=== PATIENT | female | born 1980 | race Caucasian/White ===

== ENCOUNTER 2016-12-26 10:16 | Emergency (ER) | payer OTHER ==
[~2016-12-26 10:16] MED LIST: IBUP80TA PO; PERCOCET PO; VITAPRTA PO
[2016-12-26] MEDS ORDERED: ASPIRIN 81 MG CHEW TABLET As Ordered ONE (11:02)
--- NOTE | 2016-12-26 11:09 | REP ---
Chest x-ray: Two views. History: Chest pain. . Comparison study: No comparison studies. . Findings: The lungs are well inflated and free of infiltrate. The pleural angles are sharp. The heart size is normal. Pulmonary vasculature is not increased. No significant bony abnormality is seen. Impression: Negative chest x-ray. Signed by Scott Sharif MD 12/26/2016 11:00 A
[2016-12-26 12:54] LABS: BASO % 0.6 % (0.0-1.0); EOS # 0.2 K/mm3 (0.0-0.50); EOS % 3.3 % (0.0-3.0); LARGE UNSTAINED CELL # 0.1 K/mm3 (0.0-0.4); LARGE UNSTAINED CELL % 2.2 % (0.0-4.0); LYMPH # 1.9 K/mm3 (1.5-4.5); LYMPH % 40.9 % (24.0-44.0); MEAN CORPUSCULAR HEMOGLOBIN 30.6 pg (27.0-33.0); MEAN CORPUSCULAR HGB CONC 33.1 g/dl (32.0-36.5); MEAN CORPUSCULAR VOLUME 92.3 fl (80.0-96.0); MONO # 0.3 K/mm3 (0.0-0.8); MONO % 6.9 % (0.0-5.0); NEUTROPHILS # 2.2 K/mm3 (1.8-7.7); PLATELET COUNT, AUTOMATED 254 k/mm3 (150-450); RED CELL DISTRIBUTION WIDTH 13.2 % (11.5-14.5); WHITE BLOOD COUNT 4.7 K/mm3 (4.0-10.0)
[2016-12-26 13:17] LABS: BLOOD UREA NITROGEN 7 MG/DL (7-18); CALCIUM LEVEL 8.5 MG/DL (8.5-10.1); CARBON DIOXIDE LEVEL 28 MEQ/L (21-32); CHLORIDE LEVEL 107 MEQ/L (98-107); CREATININE FOR GFR 0.68 MG/DL (0.55-1.02); GLUCOSE, FASTING 93 MG/DL (70-105); POTASSIUM SERUM 4.1 MEQ/L (3.5-5.1)
[2016-12-26] MEDS ORDERED: KETOROLAC 30 MG/ML VIAL (J1885) As Ordered ONE (13:38)
[2016-12-26 13:41] LABS: ANION GAP 7 MEQ/L (8-16); SODIUM LEVEL 142 MEQ/L (136-145)
--- NOTE | 2016-12-26 14:04 | EDDOCDS ---
Physician Documentation [facility] Name: Catalina Kwong Age: 36 yrs Sex: Female : 1980 Arrival Date: 12/26/2016 Time: 10:16 Bed PR Private MD: Disposition: 12/26/16 13:33 Discharged to Home/Self Care. Impression: Muscle spasm, Bradycardia, unspecified. - Condition is Stable. - Prescriptions for naproxen 500 mg Oral tablet - take 1 tablet by ORAL route every 12 hours; 28 tablet. Tylenol 325 mg Oral Tablet - take 2 tablet by ORAL route every 6 hours as needed; 1 bottle. - Medication Reconciliation, Local Pharmacy Hours form. - Follow up: Emergency Department; When: As soon as possible; Reason: Worsening of conditions. Follow up: Private Physician; When: 2 - 3 days; Reason: Recheck today's complaints. - Problem is new. - Symptoms are unchanged. Historical: - Allergies: no known allergies; - Home Meds: 1. Zoloft 100 mg oral tab once daily 2. clonidine HCl 0.2 mg Oral tab 2 times per day - PMHx: Depression; Borderline Personality Disorder; - PSHx: left arm; ; - Social history: Smoking status: Patient uses tobacco products, current every day smoker. No barriers to communication noted, The patient speaks fluent Yakut, Speaks appropriately for age. - Family history: Not pertinent. - : The pt / caregiver states he / she is not on anticoagulants. Home medication list is obtained from the patient. - Exposure Risk Screening:: None identified. 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 6 in. (167.64 cm); 10:24 Temp 97.1(T); srm 13:30 BP 149 / 81; Pulse 46; Resp 16; Temp 98(O); Pulse Ox 100% on R/A; kr3 14:03 Pain 2/10; kr3 10:24 Body Mass Index 34.38 (96.62 kg, 167.64 cm) srm MDM: 10:22 ECG WITH READING ER PHYS+CARDIAG ordered. EDMS 10:48 Aspirin Chewable Tablet 324 mg PO once ordered. jk8 10:48 Chest, 2 View (pa\E\lat) Ordered. EDMS 10:50 Financial registration complete. lg 10:54 REPLACED BY [facility] Payment Agreement was scanned into [employer] and attached to record. lg 11:45 Chest, 2 View (pa\E\lat) Reviewed. jk8 12:36 CBC WITH DIFFERENTIAL Ordered. EDMS 12:36 BASIC METABOLIC PROFILE Ordered. EDMS 12:36 CK-MB VALUE MASS Ordered. EDMS 12:36 TROPONIN Ordered. EDMS 13:13 CBC WITH DIFFERENTIAL Reviewed. jk8 13:24 CK-MB VALUE MASS Reviewed. jk8 13:24 TROPONIN Reviewed. jk8 13:27 BASIC METABOLIC PROFILE Reviewed. jk8 13:28 Vital Signs ordered. jk8 13:35 ketorolac 30 mg IM once ordered. jk8 13:35 Acetaminophen Tablet 650 mg PO once ordered. jk8 Administered Medications: 11:04 Drug: Aspirin 324 mg [aspirin 81 mg chewable tablet (4 tabs)] Route: PO; kr3 13:40 Drug: Acetaminophen 650 mg [acetaminophen 325 mg tablet (2 tabs)] Route: PO; kr3 14:03 Follow up: Response: Pain is decreased kr3 13:45 Drug: ketorolac 30 mg [ketorolac 30 mg/mL (1 mL) injection solution (1 mL)] Route: IM; kr3 Site: left gluteus; 14:03 Follow up: Pain 2/10 Adult; Response: Pain is decreased kr3 Signatures: Dispatcher [employer] EDMS Marcelle Negro RN LUIS FELIPE [facility] Power Manzo, [facility] Sunshine Nunez RN RN kr3 Chava Carlisle PA-C PA-C jk8 The chart was reviewed and I authenticate all verbal orders and agree with the evaluation and treatment provided.Corrections: (The following items were deleted from the chart) 12:13 12:03 Within normal limits: NSR 66 BPM, no STEMI. [email or web address] jk8 13:27 12:13 OrderId: [id number] PrecursorText: InterpretationText: diana jk8 13:27 13:27 Sinus katy 46 bpm, low qrs precordial leads, possible old infarct. diana jk8 Attachments: 10:54 [facility] Payment Agreement lg MTDD
--- NOTE | 2016-12-26 14:04 | EDDOCDS ---
Nurse's Notes [facility] Name: Catalina Kwong Age: 36 yrs Sex: Female : 1980 Arrival Date: 12/26/2016 Time: 10:16 Bed PR Private MD: Diagnosis: Muscle spasm;Bradycardia, unspecified Presentation: 12/26 10:18 Presenting complaint: Patient states: back pain/ left shoulder pain for a week. srm yesterday started with left sided chest pain and down left arm. occasional SOB. Presenting complaint: Patient states: has twins that weigh 25lbs each so she doesn't know if its from carrying them. Aspirin was not taken prior to arrival. Adult Sepsis Screening: The patient does not have new or worsening altered mentation. Patient's respiratory rate is less than 22. Systolic blood pressure is greater than 100. Patient has a qSOFA score of 0- Negative Sepsis Screen. Suicide/Homicide risk assessment- the patient denies having any suicidal and/or homicidal ideations and does not present with any other emotional, behavioral or mental health complaints. 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 Transition of care: patient was not received from another setting of care. 10:18 Acuity: TRAVIS Level 3 srm 10:18 Method Of Arrival: Walkin/Carried/Asstd srm Triage Assessment: 10:20 General: Appears in no apparent distress, Behavior is appropriate for age, cooperative. srm Pain: Pain currently is 6 out of 10 on a pain scale. HIV screening NA for this visit Offered previously. Cardiovascular: Chest pain is described as Pain is 8 out of 10 on a pain scale. radiates to left arm(s) episodes are continuous began shoulders a week ago and left chest yesterday. 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 Zoloft 100 mg oral tab once daily 2. clonidine HCl 0.2 mg Oral tab 2 times per day - PMHx: Depression; Borderline Personality Disorder; - PSHx: left arm; ; - Social history: Smoking status: Patient uses tobacco products, current every day smoker. No barriers to communication noted, The patient speaks fluent Mexican, Speaks appropriately for age. - Family history: Not pertinent. - : The pt / caregiver states he / she is not on anticoagulants. Home medication list is obtained from the patient. - Exposure Risk Screening:: None identified. Screenin:28 Screening information is obtained from the patient. Fall risk: No risks identified. kr3 Assistance ADL's: requires no assistance with activities of daily living. Abuse/DV Screen: The patient / caregiver reports he/she is: not in a situation that causes fear, pain or injury. Nutritional screening: No deficits noted. Advance Directives: Currently, there is no health care proxy. home support is adequate. Assessment: 10:29 General: ELG AND PT'S C/O DISCUSSED WITH DR MAVERICK CORNEJO THRU RCE PROCESS. srm 12:42 Reassessment: Patient appears in no apparent distress at this time. Neurological: No kr3 deficits noted. Respiratory: Reports pain with respiration. 13:27 Reassessment: Patient appears in no apparent distress at this time. continues to kr3 complain of chest pain with breathing difficulty. Pain 5/10. Respiratory: Respiratory effort is even, unlabored. Derm: Skin is normal. Vital Signs: 10:24 BP 139 / 80; Pulse 86; Resp 18; Pulse Ox 99% ; Weight 96.62 kg; Height 5 ft. 6 in. srm (167.64 cm); 10:24 Temp 97.1(T); srm 13:30 BP 149 / 81; Pulse 46; Resp 16; Temp 98(O); Pulse Ox 100% on R/A; kr3 14:03 Pain 2/10; kr3 10:24 Body Mass Index 34.38 (96.62 kg, 167.64 cm) [facility] Vitals: 10:17 Log In Time: December 26, 2016 at 10:16. RN notified that patient meets Red Flag jlf criteria. ED Course: 10:17 Patient visited by Jared Cardenas PCA. jlf 10:17 Patient visited by Jared Cardenas PCA. jlf 10:17 Patient moved to Waiting jlf 10:19 Triage Initiated srm 10:21 Patient moved to PD2 / srm 10:26 Patient visited by Marcelle Negro RN. srm 10:27 EKG done. (by ED staff). Reviewed by Krystal Cesar MD. srm 10:37 Patient moved to Triage 2 srm 10:41 Chava Carlisle PA-C is PHCP. jk8 10:41 Krystal Cesar MD is Attending Physician. jk8 10:41 Patient visited by Chava Carlisle PA-C. jk8 10:54 [facility] Payment Agreement was scanned into [employer] and attached to record. lg 11:38 Chest, 2 View (pa\E\lat) Returned. EDMS 12:36 Chava Carlisle PA-C is PHCP. jk8 12:36 Patient visited by Chava Carlisle PA-C. jk8 12:41 Patient moved to TR2 sew 12:41 TROPONIN Sent. sew 12:41 CK-MB VALUE MASS Sent. sew 12:41 BASIC METABOLIC PROFILE Sent. sew 12:41 CBC WITH DIFFERENTIAL Sent. sew 13:26 Patient moved to PR1 / 25 kr3 13:30 Patient visited by Sunshine Nunez RN. kr3 13:31 The patient / caregiver is instructed regarding the plan of care and ED course. Patient kr3 has correct armband on for positive identification. Cardiac monitoring not applicable on this patient. 13:31 No IV's were initiated during this patient's visit. No procedures done that require kr3 assistance. Administered Medications: 11:04 Drug: Aspirin 324 mg [aspirin 81 mg chewable tablet (4 tabs)] Route: PO; kr3 13:40 Drug: Acetaminophen 650 mg [acetaminophen 325 mg tablet (2 tabs)] Route: PO; kr3 14:03 Follow up: Response: Pain is decreased kr3 13:45 Drug: ketorolac 30 mg [ketorolac 30 mg/mL (1 mL) injection solution (1 mL)] Route: IM; kr3 Site: left gluteus; 14:03 Follow up: Pain 2/10 Adult; Response: Pain is decreased kr3 Order Results: Lab Order: CBC WITH DIFFERENTIAL; SPEC'M 12/26/16 12:39 Test: WHITE BLOOD COUNT; Value: 4.7; Range: 4.0-10.0; Units: K/mm3; Status: F Test: RED BLOOD COUNT; Value: 4.39; Range: 4.00-5.40; Units: M/mm3; Status: F Test: HEMOGLOBIN; Value: 13.4; Range: 12.0-16.0; Units: g/dl; Status: F Test: HEMATOCRIT; Value: 40.5; Range: 36.0-47.0; Units: %; Status: F Test: MEAN CORPUSCULAR VOLUME; Value: 92.3; Range: 80.0-96.0; Units: fl; Status: F Test: MEAN CORPUSCULAR HEMOGLOBIN; Value: 30.6; Range: 27.0-33.0; Units: pg; Status: F Test: MEAN CORPUSCULAR HGB CONC; Value: 33.1; Range: 32.0-36.5; Units: g/dl; Status: F Test: RED CELL DISTRIBUTION WIDTH; Value: 13.2; Range: 11.5-14.5; Units: %; Status: F Test: PLATELET COUNT, AUTOMATED; Value: 254; Range: 150-450; Units: k/mm3; Status: F Test: NEUTROPHILS %; Value: 46.0; Range: 36.0-66.0; Units: %; Status: F Test: LYMPH %; Value: 40.9; Range: 24.0-44.0; Units: %; Status: F Test: MONO %; Value: 6.9; Range: 0.0-5.0; Abnormal: Above high normal; Units: %; Status: F Test: EOS %; Value: 3.3; Range: 0.0-3.0; Abnormal: Above high normal; Units: %; Status: F Test: BASO %; Value: 0.6; Range: 0.0-1.0; Units: %; Status: F Test: LARGE UNSTAINED CELL %; Value: 2.2; Range: 0.0-4.0; Units: %; Status: F Test: NEUTROPHILS #; Value: 2.2; Range: 1.8-7.7; Units: K/mm3; Status: F Test: LYMPH #; Value: 1.9; Range: 1.5-4.5; Units: K/mm3; Status: F Test: MONO #; Value: 0.3; Range: 0.0-0.8; Units: K/mm3; Status: F Test: EOS #; Value: 0.2; Range: 0.0-0.50; Units: K/mm3; Status: F Test: BASO #; Value: 0.0; Range: 0.0-0.2; Units: K/mm3; Status: F Test: LARGE UNSTAINED CELL #; Value: 0.1; Range: 0.0-0.4; Units: K/mm3; Status: F Lab Order: BASIC METABOLIC PROFILE; [facility] 12/26/16 12:39 Test: GLUCOSE, FASTING; Value: 93; Range: 70-105; Units: MG/DL; Status: F Test: BLOOD UREA NITROGEN; Value: 7; Range: 7-18; Units: MG/DL; Status: F Test: CREATININE FOR GFR; Value: 0.68; Range: 0.55-1.02; Units: MG/DL; Status: F Test: SODIUM LEVEL; Value: 142; Range: 136-145; Units: MEQ/L; Status: F Test: POTASSIUM SERUM; Value: 4.1; Range: 3.5-5.1; Units: MEQ/L; Status: F Test: CHLORIDE LEVEL; Value: 107; Range: 98-107; Units: MEQ/L; Status: F Test: CARBON DIOXIDE LEVEL; Value: 28; Range: 21-32; Units: MEQ/L; Status: F Test: ANION GAP; Value: 7; Range: 8-16; Abnormal: Below low normal; Units: MEQ/L; Status: F Test: CALCIUM LEVEL; Value: 8.5; Range: 8.5-10.1; Units: MG/DL; Status: F Test Note: ; --- 12/26/16 1341 --- NA previously reported as: 142 MEQ/L Lab Order: CK-MB VALUE MASS; [facility] 12/26/16 12:39 Test: CK-MB VALUE MASS; Value: 1.0; Range: 0.0-3.6; Units: NG/ML; Status: F Lab Order: TROPONIN; [facility] 12/26/16 12:39 Test: TROPONIN I; Value: < 0.02; Range: < 0.10; Units: NG/ML; Status: F Test Note: ; Troponin I Reference Interval for [employer] LOCI: 99th Percentile= 0.00-0.045 ng/ml Risk Stratification: <= 0.10 ng/ml Decreased Risk for Adverse Clinical Events. 0.10-1.50 ng/ml Increased Risk for Adverse Clinical Events. Evaluation of additional criterion and/or repeat testing in 2-6 hours is suggested to rule out myocardial damage. >= 1.50 ng/ml Indicative of Myocardial Injury. Radiology Order: Chest, 2 View (pa\E\lat) Test: Chest, 2 View (pa\E\lat) REASON FOR EXAMINATION: Chest Pain; Chest x-ray: Two views.; ; History: Chest pain. .; ; Comparison study: No comparison studies. .; ; Findings: The lungs are well inflated and free of infiltrate. The pleural; angles are sharp. The heart size is normal. Pulmonary vasculature is not; increased. No significant bony abnormality is seen.; ; Impression:; ; Negative chest x-ray.; ; ; Signed by; Scott Sharif MD 12/26/2016 11:00 A; Outcome: 13:31 No special radiology studies were completed. kr3 13:33 Discharge ordered by Provider. jk8 14:02 Discharge Assessment: patient administered narcotics - no. The following High Risk kr3 Discharge criteria are identified: None. Discharged to home ambulatory. Condition: stable. Discharge instructions given to patient, Instructed on discharge instructions, follow up and referral plans. medication usage, Demonstrated understanding of instructions, medications, Pt was receptive of discharge instructions/ teaching. Prescriptions given X 2. Property sent home with patient. 14:03 Patient left the ED. kr3 Signatures: Dispatcher [employer] EDMS Marcelle Negro, RN RN Power Mcgowan, Sunshine Lopes lg, RN RN kr3 Krystal Benjamin Jordain, PCA PCA jlf Kenniff, Joseph, PA-C PA-C jk8 MTDD
--- NOTE | 2016-12-26 14:33 | ECGEPIP ---
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
--- NOTE | 2016-12-28 15:04 | EDDOCDS ---
Physician Documentation [facility] Name: Catalina Kwong Age: 36 yrs Sex: Female : 1980 Arrival Date: 12/26/2016 Time: 10:16 Bed PR Private MD: Disposition: 12/26/16 13:33 Discharged to Home/Self Care. Impression: Muscle spasm, Bradycardia, unspecified. - Condition is Stable. - Prescriptions for naproxen 500 mg Oral tablet - take 1 tablet by ORAL route every 12 hours; 28 tablet. Tylenol 325 mg Oral Tablet - take 2 tablet by ORAL route every 6 hours as needed; 1 bottle. - Medication Reconciliation, Local Pharmacy Hours form. - Follow up: Emergency Department; When: As soon as possible; Reason: Worsening of conditions. Follow up: Private Physician; When: 2 - 3 days; Reason: Recheck today's complaints. - Problem is new. - Symptoms are unchanged. Historical: - Allergies: no known allergies; - Home Meds: 1. Zoloft 100 mg oral tab once daily 2. clonidine HCl 0.2 mg Oral tab 2 times per day - PMHx: Depression; Borderline Personality Disorder; - PSHx: left arm; ; - Social history: Smoking status: Patient uses tobacco products, current every day smoker. No barriers to communication noted, The patient speaks fluent Yakut, Speaks appropriately for age. - Family history: Not pertinent. - : The pt / caregiver states he / she is not on anticoagulants. Home medication list is obtained from the patient. - Exposure Risk Screening:: None identified. 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 6 in. (167.64 cm); 10:24 Temp 97.1(T); srm 13:30 BP 149 / 81; Pulse 46; Resp 16; Temp 98(O); Pulse Ox 100% on R/A; kr3 14:03 Pain 2/10; kr3 10:24 Body Mass Index 34.38 (96.62 kg, 167.64 cm) srm MDM: 10:22 ECG WITH READING ER PHYS+CARDIAG ordered. EDMS 10:48 Aspirin Chewable Tablet 324 mg PO once ordered. jk8 10:48 Chest, 2 View (pa\E\lat) Ordered. EDMS 10:50 Financial registration complete. lg 10:54 [facility] Payment Agreement was scanned into [employer] and attached to record. lg 11:45 Chest, 2 View (pa\E\lat) Reviewed. jk8 12:36 CBC WITH DIFFERENTIAL Ordered. EDMS 12:36 BASIC METABOLIC PROFILE Ordered. EDMS 12:36 CK-MB VALUE MASS Ordered. EDMS 12:36 TROPONIN Ordered. EDMS 13:13 CBC WITH DIFFERENTIAL Reviewed. jk8 13:24 CK-MB VALUE MASS Reviewed. jk8 13:24 TROPONIN Reviewed. jk8 13:27 BASIC METABOLIC PROFILE Reviewed. jk8 13:28 Vital Signs ordered. jk8 13:35 ketorolac 30 mg IM once ordered. jk8 13:35 Acetaminophen Tablet 650 mg PO once ordered. jk8 14:34 T-Sheet-- Draft Copy was scanned into [employer] and attached to record. gb 14:35 ECG/EKG was scanned into [employer] and attached to record. gb Administered Medications: 11:04 Drug: Aspirin 324 mg [aspirin 81 mg chewable tablet (4 tabs)] Route: PO; kr3 13:40 Drug: Acetaminophen 650 mg [acetaminophen 325 mg tablet (2 tabs)] Route: PO; kr3 14:03 Follow up: Response: Pain is decreased kr3 13:45 Drug: ketorolac 30 mg [ketorolac 30 mg/mL (1 mL) injection solution (1 mL)] Route: IM; kr3 Site: left gluteus; 14:03 Follow up: Pain 2/10 Adult; Response: Pain is decreased kr3 Signatures: Dispatcher [employer] EDMS Marcelle Negro, RN RN srm Neva Bang, Reg Reg gb Power Manzo, Reg Reg lg Sunshine Nunez RN RN kr3 Chava Carlisle PA-C PA-C jk8 The chart was reviewed and I authenticate all verbal orders and agree with the evaluation and treatment provided.Corrections: (The following items were deleted from the chart) 12:13 12:03 Within normal limits: NSR 66 BPM, no STEMI. jk8 jk8 13:27 12:13 OrderId: [id number] PrecursorText: InterpretationText: jk8 jk8 13: 13:27 Sinus katy 46 bpm, low qrs precordial leads, possible old infarct. jk8 jk8 Attachments: 10:54 [facility] Payment Agreement lg 14:34 T-Sheet-- Draft Copy gb 14:35 ECG/EKG gb Chart Complete MTDD
--- NOTE | 2016-12-28 15:04 | EDDOCDS ---
Physician Documentation [facility] Name: Catalina Kwong Age: 36 yrs Sex: Female : 1980 Arrival Date: 12/26/2016 Time: 10:16 Bed PR Private MD: Disposition: 12/26/16 13:33 Discharged to Home/Self Care. Impression: Muscle spasm, Bradycardia, unspecified. - Condition is Stable. - Prescriptions for naproxen 500 mg Oral tablet - take 1 tablet by ORAL route every 12 hours; 28 tablet. Tylenol 325 mg Oral Tablet - take 2 tablet by ORAL route every 6 hours as needed; 1 bottle. - Medication Reconciliation, Local Pharmacy Hours form. - Follow up: Emergency Department; When: As soon as possible; Reason: Worsening of conditions. Follow up: Private Physician; When: 2 - 3 days; Reason: Recheck today's complaints. - Problem is new. - Symptoms are unchanged. Historical: - Allergies: no known allergies; - Home Meds: 1. Zoloft 100 mg oral tab once daily 2. clonidine HCl 0.2 mg Oral tab 2 times per day - PMHx: Depression; Borderline Personality Disorder; - PSHx: left arm; ; - Social history: Smoking status: Patient uses tobacco products, current every day smoker. No barriers to communication noted, The patient speaks fluent Lithuanian, Speaks appropriately for age. - Family history: Not pertinent. - : The pt / caregiver states he / she is not on anticoagulants. Home medication list is obtained from the patient. - Exposure Risk Screening:: None identified. 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 6 in. (167.64 cm); 10:24 Temp 97.1(T); srm 13:30 BP 149 / 81; Pulse 46; Resp 16; Temp 98(O); Pulse Ox 100% on R/A; kr3 14:03 Pain 2/10; kr3 10:24 Body Mass Index 34.38 (96.62 kg, 167.64 cm) srm MDM: 10:22 ECG WITH READING ER PHYS+CARDIAG ordered. EDMS 10:48 Aspirin Chewable Tablet 324 mg PO once ordered. jk8 10:48 Chest, 2 View (pa\E\lat) Ordered. EDMS 10:50 Financial registration complete. lg 10:54 [facility] Payment Agreement was scanned into [employer] and attached to record. lg 11:45 Chest, 2 View (pa\E\lat) Reviewed. jk8 12:36 CBC WITH DIFFERENTIAL Ordered. EDMS 12:36 BASIC METABOLIC PROFILE Ordered. EDMS 12:36 CK-MB VALUE MASS Ordered. EDMS 12:36 TROPONIN Ordered. EDMS 13:13 CBC WITH DIFFERENTIAL Reviewed. jk8 13:24 CK-MB VALUE MASS Reviewed. jk8 13:24 TROPONIN Reviewed. jk8 13:27 BASIC METABOLIC PROFILE Reviewed. jk8 13:28 Vital Signs ordered. jk8 13:35 ketorolac 30 mg IM once ordered. jk8 13:35 Acetaminophen Tablet 650 mg PO once ordered. jk8 14:34 T-Sheet-- Draft Copy was scanned into [employer] and attached to record. gb 14:35 ECG/EKG was scanned into [employer] and attached to record. gb Administered Medications: 11:04 Drug: Aspirin 324 mg [aspirin 81 mg chewable tablet (4 tabs)] Route: PO; kr3 13:40 Drug: Acetaminophen 650 mg [acetaminophen 325 mg tablet (2 tabs)] Route: PO; kr3 14:03 Follow up: Response: Pain is decreased kr3 13:45 Drug: ketorolac 30 mg [ketorolac 30 mg/mL (1 mL) injection solution (1 mL)] Route: IM; kr3 Site: left gluteus; 14:03 Follow up: Pain 2/10 Adult; Response: Pain is decreased kr3 Signatures: Dispatcher [employer] EDMS Marcelle Negro, RN RN srm Neva Bang, Reg Reg gb Power Manzo, Reg Reg lg Sunshine Nunez RN RN kr3 Chava Carlisle PA-C PA-C jk8 The chart was reviewed and I authenticate all verbal orders and agree with the evaluation and treatment provided.Corrections: (The following items were deleted from the chart) 12:13 12:03 Within normal limits: NSR 66 BPM, no STEMI. jk8 jk8 13:27 12:13 OrderId: [id number] PrecursorText: InterpretationText: jk8 jk8 13: 13:27 Sinus katy 46 bpm, low qrs precordial leads, possible old infarct. jk8 jk8 Attachments: 10:54 [facility] Payment Agreement lg 14:34 T-Sheet-- Draft Copy gb 14:35 ECG/EKG gb Chart Complete MTDD
--- NOTE | 2016-12-28 15:04 | EDDOCDS ---
Nurse's Notes [facility] Name: Catalina Rico Age: 36 yrs Sex: Female : 1980 Arrival Date: 12/26/2016 Time: 10:16 Bed PR Private MD: Diagnosis: Muscle spasm;Bradycardia, unspecified Presentation: 12/26 10:18 Presenting complaint: Patient states: back pain/ left shoulder pain for a week. srm yesterday started with left sided chest pain and down left arm. occasional SOB. Presenting complaint: Patient states: has twins that weigh 25lbs each so she doesn't know if its from carrying them. Aspirin was not taken prior to arrival. Adult Sepsis Screening: The patient does not have new or worsening altered mentation. Patient's respiratory rate is less than 22. Systolic blood pressure is greater than 100. Patient has a qSOFA score of 0- Negative Sepsis Screen. Suicide/Homicide risk assessment- the patient denies having any suicidal and/or homicidal ideations and does not present with any other emotional, behavioral or mental health complaints. Status: Patient is not a it service technician or dependent. Transition of care: patient was not received from another setting of care. 10:18 Acuity: TRAVIS Level 3 srm 10:18 Method Of Arrival: Walkin/Carried/Asstd srm Triage Assessment: 10:20 General: Appears in no apparent distress, Behavior is appropriate for age, cooperative. srm Pain: Pain currently is 6 out of 10 on a pain scale. HIV screening NA for this visit Offered previously. Cardiovascular: Chest pain is described as Pain is 8 out of 10 on a pain scale. radiates to left arm(s) episodes are continuous began shoulders a week ago and left chest yesterday. EMERGENCY MEDICINE SPECIALIST: 10:20 LMP 12/22/2016 srm Historical: - Allergies: no known allergies; - Home Meds: 1. Zoloft 100 mg oral tab once daily 2. clonidine HCl 0.2 mg Oral tab 2 times per day - PMHx: Depression; Borderline Personality Disorder; - PSHx: left arm; ; - Social history: Smoking status: Patient uses tobacco products, current every day smoker. No barriers to communication noted, The patient speaks fluent [place], Speaks appropriately for age. - Family history: Not pertinent. - : The pt / caregiver states he / she is not on anticoagulants. Home medication list is obtained from the patient. - Exposure Risk Screening:: None identified. Screenin:28 Screening information is obtained from the patient. Fall risk: No risks identified. kr3 Assistance ADL's: requires no assistance with activities of daily living. Abuse/DV Screen: The patient / caregiver reports he/she is: not in a situation that causes fear, pain or injury. Nutritional screening: No deficits noted. Advance Directives: Currently, there is no health care proxy. home support is adequate. Assessment: 10:29 General: ELG AND PT'S C/O DISCUSSED WITH DR MAVERICK CORNEJO THRU RCE PROCESS. srm 12:42 Reassessment: Patient appears in no apparent distress at this time. Neurological: No kr3 deficits noted. Respiratory: Reports pain with respiration. 13:27 Reassessment: Patient appears in no apparent distress at this time. continues to kr3 complain of chest pain with breathing difficulty. Pain 5/10. Respiratory: Respiratory effort is even, unlabored. Derm: Skin is normal. Vital Signs: 10:24 BP 139 / 80; Pulse 86; Resp 18; Pulse Ox 99% ; Weight 96.62 kg; Height 5 ft. 6 in. srm (167.64 cm); 10:24 Temp 97.1(T); srm 13:30 BP 149 / 81; Pulse 46; Resp 16; Temp 98(O); Pulse Ox 100% on R/A; kr3 14:03 Pain 2/10; kr3 10:24 Body Mass Index 34.38 (96.62 kg, 167.64 cm) [facility] Vitals: 10:17 Log In Time: December 26, 2016 at 10:16. RN notified that patient meets Red Flag jlf criteria. ED Course: 10:17 Patient visited by Jared Cardenas PCA. jlf 10:17 Patient visited by Jared Cardenas PCA. jlf 10:17 Patient moved to Waiting jlf 10:19 Triage Initiated srm 10:21 Patient moved to PD2 / srm 10:26 Patient visited by Marcelle Negro RN. srm 10:27 EKG done. (by ED staff). Reviewed by Krystal Cesar MD. srm 10:37 Patient moved to Triage 2 srm 10:41 Chava Carlisle PA-C is PHCP. jk8 10:41 Krystal eCsar MD is Attending Physician. jk8 10:41 Patient visited by Chava Carlisle PA-C. jk8 10:54 [facility] Payment Agreement was scanned into [employer] and attached to record. lg 11:38 Chest, 2 View (pa\E\lat) Returned. EDMS 12:36 Chava Carlisle PA-C is [facility]. jk8 12:36 Patient visited by Chava Carlisle PA-C. jk8 12:41 Patient moved to TR2 sew 12:41 TROPONIN Sent. sew 12:41 CK-MB VALUE MASS Sent. sew 12:41 BASIC METABOLIC PROFILE Sent. sew 12:41 CBC WITH DIFFERENTIAL Sent. sew 13:26 Patient moved to PR1 / 25 kr3 13:30 Patient visited by Sunshine Nunez RN. kr3 13:31 The patient / caregiver is instructed regarding the plan of care and ED course. Patient kr3 has correct armband on for positive identification. Cardiac monitoring not applicable on this patient. 13:31 No IV's were initiated during this patient's visit. No procedures done that require kr3 assistance. 14:34 T-Sheet-- Draft Copy was scanned into [employer] and attached to record. gb 14:35 ECG/EKG was scanned into [employer] and attached to record. gb 14:46 EKG-ADULT Returned. EDMS Administered Medications: 11:04 Drug: Aspirin 324 mg [aspirin 81 mg chewable tablet (4 tabs)] Route: PO; kr3 13:40 Drug: Acetaminophen 650 mg [acetaminophen 325 mg tablet (2 tabs)] Route: PO; kr3 14:03 Follow up: Response: Pain is decreased kr3 13:45 Drug: ketorolac 30 mg [ketorolac 30 mg/mL (1 mL) injection solution (1 mL)] Route: IM; kr3 Site: left gluteus; 14:03 Follow up: Pain 2/10 Adult; Response: Pain is decreased kr3 Order Results: Lab Order: CBC WITH DIFFERENTIAL; SPEC'M 12/26/16 12:39 Test: WHITE BLOOD COUNT; Value: 4.7; Range: 4.0-10.0; Units: K/mm3; Status: F Test: RED BLOOD COUNT; Value: 4.39; Range: 4.00-5.40; Units: M/mm3; Status: F Test: HEMOGLOBIN; Value: 13.4; Range: 12.0-16.0; Units: g/dl; Status: F Test: HEMATOCRIT; Value: 40.5; Range: 36.0-47.0; Units: %; Status: F Test: MEAN CORPUSCULAR VOLUME; Value: 92.3; Range: 80.0-96.0; Units: fl; Status: F Test: MEAN CORPUSCULAR HEMOGLOBIN; Value: 30.6; Range: 27.0-33.0; Units: pg; Status: F Test: MEAN CORPUSCULAR HGB CONC; Value: 33.1; Range: 32.0-36.5; Units: g/dl; Status: F Test: RED CELL DISTRIBUTION WIDTH; Value: 13.2; Range: 11.5-14.5; Units: %; Status: F Test: PLATELET COUNT, AUTOMATED; Value: 254; Range: 150-450; Units: k/mm3; Status: F Test: NEUTROPHILS %; Value: 46.0; Range: 36.0-66.0; Units: %; Status: F Test: LYMPH %; Value: 40.9; Range: 24.0-44.0; Units: %; Status: F Test: MONO %; Value: 6.9; Range: 0.0-5.0; Abnormal: Above high normal; Units: %; Status: F Test: EOS %; Value: 3.3; Range: 0.0-3.0; Abnormal: Above high normal; Units: %; Status: F Test: BASO %; Value: 0.6; Range: 0.0-1.0; Units: %; Status: F Test: LARGE UNSTAINED CELL %; Value: 2.2; Range: 0.0-4.0; Units: %; Status: F Test: NEUTROPHILS #; Value: 2.2; Range: 1.8-7.7; Units: K/mm3; Status: F Test: LYMPH #; Value: 1.9; Range: 1.5-4.5; Units: K/mm3; Status: F Test: MONO #; Value: 0.3; Range: 0.0-0.8; Units: K/mm3; Status: F Test: EOS #; Value: 0.2; Range: 0.0-0.50; Units: K/mm3; Status: F Test: BASO #; Value: 0.0; Range: 0.0-0.2; Units: K/mm3; Status: F Test: LARGE UNSTAINED CELL #; Value: 0.1; Range: 0.0-0.4; Units: K/mm3; Status: F Lab Order: BASIC METABOLIC PROFILE; [facility]' 12/26/16 12:39 Test: GLUCOSE, FASTING; Value: 93; Range: 70-105; Units: MG/DL; Status: F Test: BLOOD UREA NITROGEN; Value: 7; Range: 7-18; Units: MG/DL; Status: F Test: CREATININE FOR GFR; Value: 0.68; Range: 0.55-1.02; Units: MG/DL; Status: F Test: SODIUM LEVEL; Value: 142; Range: 136-145; Units: MEQ/L; Status: F Test: POTASSIUM SERUM; Value: 4.1; Range: 3.5-5.1; Units: MEQ/L; Status: F Test: CHLORIDE LEVEL; Value: 107; Range: 98-107; Units: MEQ/L; Status: F Test: CARBON DIOXIDE LEVEL; Value: 28; Range: 21-32; Units: MEQ/L; Status: F Test: ANION GAP; Value: 7; Range: 8-16; Abnormal: Below low normal; Units: MEQ/L; Status: F Test: CALCIUM LEVEL; Value: 8.5; Range: 8.5-10.1; Units: MG/DL; Status: F Test Note: ; --- 12/26/16 1341 --- NA previously reported as: 142 MEQ/L Lab Order: CK-MB VALUE MASS; SPEC' 12/26/16 12:39 Test: CK-MB VALUE MASS; Value: 1.0; Range: 0.0-3.6; Units: NG/ML; Status: F Lab Order: TROPONIN; SPEC' 12/26/16 12:39 Test: TROPONIN I; Value: < 0.02; Range: < 0.10; Units: NG/ML; Status: F Test Note: ; Troponin I Reference Interval for [employer] LOCI: 99th Percentile= 0.00-0.045 ng/ml Risk Stratification: <= 0.10 ng/ml Decreased Risk for Adverse Clinical Events. 0.10-1.50 ng/ml Increased Risk for Adverse Clinical Events. Evaluation of additional criterion and/or repeat testing in 2-6 hours is suggested to rule out myocardial damage. >= 1.50 ng/ml Indicative of Myocardial Injury. Radiology Order: EKG-ADULT Test: EKG-ADULT REASON FOR EXAMINATION: Chest Pain; Stationary ECG Study; [facility] - ED; ; Test Date: 2016-12-26; Pat Name: CATALINA RICO Department:; Room: -; Gender: F Director Of Speech Pathology: rizwan; : 1980 Requested By: Krystal Cesar; Order Number: [id number] Reading MD: William Beltrán; Measurements; Intervals [place]; Rate: 46 P: 35; GA: 164 QRS: 1; QRSD: 99 T: -13; QT: 439; QTc: 387; Interpretive Statements; SINUS BRADYCARDIA WITH OCCASIONAL SUPRAVENTRICULAR PREMATURE COMPLEXES; LOW QRS VOLTAGE IN PRECORDIAL LEADS; PRWP; Electronically Signed On 12-26-2016 14:32:51 EST by William Beltrán; Radiology Order: Chest, 2 View (pa\E\lat) Test: Chest, 2 View (pa\E\lat) REASON FOR EXAMINATION: Chest Pain; Chest x-ray: Two views.; ; History: Chest pain. .; ; Comparison study: No comparison studies. .; ; Findings: The lungs are well inflated and free of infiltrate. The pleural; angles are sharp. The heart size is normal. Pulmonary vasculature is not; increased. No significant bony abnormality is seen.; ; Impression:; ; Negative chest x-ray.; ; ; Signed by; Scott Sharif MD 12/26/2016 11:00 A; Outcome: 13:31 No special radiology studies were completed. kr3 13:33 Discharge ordered by Provider. jk8 14:02 Discharge Assessment: patient administered narcotics - no. The following High Risk kr3 Discharge criteria are identified: None. Discharged to home ambulatory. Condition: stable. Discharge instructions given to patient, Instructed on discharge instructions, follow up and referral plans. medication usage, Demonstrated understanding of instructions, medications, Pt was receptive of discharge instructions/ teaching. Prescriptions given X 2. Property sent home with patient. 14:03 Patient left the ED. kr3 Signatures: Dispatcher [employer] EDMS Marcelle Negro, RN RN [facility] [place], [place], Reg Reg gb Power Manzo, Reg Reg lg Sunshine Nunez RN RN kr3 Krystal Benjamin Jordain, [employer] MANAGER jlf Chava Carlisle PA-C PAAmparo jk8 Chart Complete MTDD
== END 2016-12-26 14:03 | disposition home or self-care (01) ==
LOC: M ED 10:16
DX: M62.838 Other muscle spasm (principal); R00.1 Bradycardia, unspecified; F32.9 Major depressive disorder, single episode, unspecified; F60.3 Borderline personality disorder; F17.210 Nicotine dependence, cigarettes, uncomplicated; Z79.899 Other long term (current) drug therapy
CPT/HCPCS: 36415; 71020; 80048; 82553; 85025; 93005; 96372; 99284; J1885